=== PATIENT | female | born 1960 | race Caucasian/White ===

== ENCOUNTER 2021-01-14 14:38 | Inpatient (IN) | payer OTHER ==
[~2021-01-14] VITALS: Ht 157.5 cm; Wt 54.4 kg
[2021-01-14] MEDS ORDERED: RISPERDAL2 MG PO (16:14)
[2021-01-14] MEDS ORDERED: RESTORIL30 MG PO (16:15)
[2021-01-14] MEDS ORDERED: BUPROPION PO (16:15)
[2021-01-14] MEDS ORDERED: MICARDIS20 MG PO (16:16)
[2021-01-14] MEDS ORDERED: TOPROL XL25 M1 PO (16:16)
[2021-01-16] MEDS ORDERED: LORAZEPAM0.5 MG (08:10)
[2021-01-16] MEDS ORDERED: BUPROPION HCL150 M1 (08:10)
[2021-01-16] MEDS ORDERED: WAL-DRYL25 MG (08:10)
== END 2021-01-18 11:13 | disposition home or self-care (01) | DRG 741 ==
LOC: OB/GYN 01-15 08:37 → O/R 01-15 08:37 → SURH 01-15 13:13 → OB/GYN 01-15 18:20
PROVIDERS: ADMIT Specialist; ATTEND Specialist
PROC: 0UT24ZZ Resection of Bilateral Ovaries, Percutaneous Endoscopic Approach (ICD-10-PCS; 2021-01-15)
PROC: 0UT74ZZ Resection of Bilateral Fallopian Tubes, Percutaneous Endoscopic Approach (ICD-10-PCS; 2021-01-15)
PROC: 07BC4ZX Excision of Pelvis Lymphatic, Percutaneous Endoscopic Approach, Diagnostic (ICD-10-PCS; 2021-01-15)
PROC: 07BD4ZX Excision of Aortic Lymphatic, Percutaneous Endoscopic Approach, Diagnostic (ICD-10-PCS; 2021-01-15)
PROC: 3E1M48X Irrigation of Peritoneal Cavity using Irrigating Substance, Percutaneous Endoscopic Approach, Diagnostic (ICD-10-PCS; 2021-01-15)
PROC: 0UT94ZZ Resection of Uterus, Percutaneous Endoscopic Approach (ICD-10-PCS; principal; 2021-01-15 16:45)
PROC: 30233N1 Transfusion of Nonautologous Red Blood Cells into Peripheral Vein, Percutaneous Approach (ICD-10-PCS; 2021-01-17)
DX: C54.1 Malignant neoplasm of endometrium (principal); D64.9 Anemia, unspecified; Z20.822 Contact with and (suspected) exposure to COVID-19